=== PATIENT | female | born 1950 | race Caucasian/White ===

== ENCOUNTER 2018-01-04 11:29 | Emergency (ER) | payer MEDICARE, OTHER ==
[2018-01-04 11:48] VITALS: BP 130/78; PULSE 98; RESP 16; TEMP 97.9; O2SAT 95
== END 2018-01-04 12:54 | disposition home or self-care (01) | DRG 153 ==
LOC: ED 11:29
DX: J06.9 Acute upper respiratory infection, unspecified (principal)
CPT/HCPCS: 87430; 87804; 99282